=== PATIENT | female | born 2000 | race Caucasian/White ===

== ENCOUNTER 2022-05-19 09:09 | Emergency (ER) | payer MEDICAID ==
[~2022-05-19] VITALS: Ht 160 cm; Wt 52.3 kg
[2022-05-19 09:18] VITALS: TEMP 97.6
[2022-05-19 11:00] VITALS: BP 122/66; PULSE 69
== END 2022-05-19 11:00 | disposition home or self-care (01) ==
LOC: COL.ER 09:09
DX: O26.891 Other specified pregnancy related conditions, first trimester (principal); R10.2 Pelvic and perineal pain; Z3A.08 8 weeks gestation of pregnancy